=== PATIENT | male | born 1975 | race Caucasian/White ===

== ENCOUNTER 2020-04-28 08:17 | Day surgery (SDC) | payer OTHER ==
[2020-04-26 10:43] VITALS: BMI 43.5
[~2020-04-28 08:17] MED LIST: DEXAMETHASONE SOD PHOSPHATE 10 MG/ML 1 ML VIAL IV ONE; FAMOTIDINE 20 MG/2 ML VIAL IV ONE; HYDROmorphone 0.5 MG/0.5 ML SYRINGE IVP PRN; ONDANSETRON 4 MG/2 ML VIAL IVP ONE
[2020-04-28] MEDS: OXYMETAZOLINE 0.05% NASL SPRAY 1 SPRAY BOTTLE NASAL ONE ×5 (08:43→09:03)
[2020-04-28] MEDS: LACTATED RINGERS 1,000 ML IV SCH ×2 (09:06→10:18)
[2020-04-28] MEDS ORDERED: SCOPOLAMINE 1.5MG/72HR PATCH TRANSDERM ONE (09:08)
[2020-04-28] MEDS ORDERED: ONDANSETRON 4 MG/2 ML VIAL ONE (10:14)
[2020-04-28] MEDS ORDERED: fentaNYL (PF) 50 MCG/ML 2 ML AMP ONE (10:14)
[2020-04-28] MEDS ORDERED: SUCCINYLCHOLINE CHLORIDE VIAL 200 MG/10 ML VIAL IV ONE (10:14)
[2020-04-28] MEDS ORDERED: MIDAZOLAM 2 MG/2 ML VIAL ONE (10:14)
[2020-04-28] MEDS ORDERED: LIDOCAINE 1% INJ 10MG/ML (20 ML MDV) ONE (10:14)
[2020-04-28] MEDS ORDERED: PROPOFOL 10 MG/ML 20 ML VIAL IV ONE (10:14)
[2020-04-28] MEDS ORDERED: LIDOCAINE 1%-EPI 1:100,000 20 ML VIAL SQ ONE (10:56)
[2020-04-28] MEDS ORDERED: CIPROFLOXACIN-DEXAMETH 0.3-0.1% DROPS 7.5 ML BTL LEFT EAR ONE (10:57)
[2020-04-28 11:20] VITALS: TEMP 97.2
--- NOTE | 2020-04-28 11:28 | P.OP ---
Date of Procedure: 04/28/20 Preoperative Diagnosis: chronic otitis media with effusion left ear conductive hearing loss eustachian tube dysfunction nasal pharyngeal mass Postoperative Diagnosis: same Procedure(s) Performed: left direct microscopic tympanostomy and tube placement utilizing ultraseal tube endoscopic removal of nasopharyngeal mass left balloon eustachian tuboplasty Anesthesia: [place]VADOR[place] Surgeon: Osiel Soler Estimated Blood Loss (ml): 0 Pathology: other (nasopharyngeal mass) Condition: stable Disposition: PACU Indications for Procedure: this patient presented to the office with a left-sided ear infection that's been present since October and has failed medical therapy. Endoscopy revealed a mass of the nasopharynx on the left side and we decided to put a tube in that left ear do a balloon eustachian tuboplasty and removal of this nasopharyngeal mass. All risks, benefits, and alternative therapies were discussed. Consent was obtained and all questions were answered. Operative Findings: left middle ear effusion, nasopharyngeal mass, edema around the eustachian tube Description of Procedure: patient was taken to the operative room placed in the supine position. A general inhalation anesthetic was administered to the patient by mask and subsequently intubated with a cuffed endotracheal tube by the department of anesthesia with a functioning IV line in place. The patient was monitored throughout the entire case by the department of anesthesia. With the use of a 250 mm Zeiss microscope the left ear was evaluated and the drum was retracted. Tympanostomy incision was made inferiorly under microscopic evaluation and fluid was suctioned and an ultraseal tube was placed. Excellent placement was obtained. Attention was paid intranasally where there was a nasopharyngeal mass that was removed with a [place]. Complete removal of this mass was obtained. This was done with use of a 0 Akhtar justyna endoscope. In addition, we then balloon to the left eustachian tube with standard protocol. We utilized the aclarentthis was done with a 0 Akhtar justyna scope. balloon. Excellent balloon was obtained and the instrumentation was removed.
[2020-04-28] MEDS ORDERED: LACTATED RINGERS 1,000 ML IV ONE (11:37)
[2020-04-28 12:28] VITALS: RESP 16
[2020-04-28 12:37] VITALS: BP 128/83; PULSE 70
== END 2020-04-28 13:17 | disposition home or self-care (01) ==
LOC: OR 08:17
PROVIDERS: ATTEND Otolaryngology
DX: H65.492 Other chronic nonsuppurative otitis media, left ear (principal); H90.2 Conductive hearing loss, unspecified; H69.92 Unspecified Eustachian tube disorder, left ear; J39.2 Other diseases of pharynx; G47.33 Obstructive sleep apnea (adult) (pediatric); Z99.89 Dependence on other enabling machines and devices; E66.01 Morbid (severe) obesity due to excess calories; Z68.41 Body mass index [BMI] 40.0-44.9, adult; M10.9 Gout, unspecified; Z98.890 Other specified postprocedural states; Z82.61 Family history of arthritis; Z82.49 Family history of ischemic heart disease and other diseases of the circulatory system; Z83.42 Family history of familial hypercholesterolemia; Z83.3 Family history of diabetes mellitus; Z80.0 Family history of malignant neoplasm of digestive organs; Z79.1 Long term (current) use of non-steroidal anti-inflammatories (NSAID); Z79.52 Long term (current) use of systemic steroids; Z79.899 Other long term (current) drug therapy; J30.9 Allergic rhinitis, unspecified
CPT/HCPCS: 88305; 69436; 31237; 69799; J2250; J0330; J1100; J2405; J0690; J2001; J3010; J2704